=== PATIENT | female | born 1960 | race Caucasian/White ===

== ENCOUNTER 2016-11-19 15:13 | Emergency (ER) | payer MEDICARE, OTHER | END 2016-11-19 18:04 | disposition other institution (70) | LOC: ER 15:13 | DX: J44.0 Chronic obstructive pulmonary disease with (acute) lower respiratory infection (principal); J18.9 Pneumonia, unspecified organism; I10 Essential (primary) hypertension; G89.29 Other chronic pain; M54.9 Dorsalgia, unspecified; F32.9 Major depressive disorder, single episode, unspecified; F17.210 Nicotine dependence, cigarettes, uncomplicated; Z79.899 Other long term (current) drug therapy; Z88.0 Allergy status to penicillin; Z88.5 Allergy status to narcotic agent | CPT/HCPCS: 99284; 99284-25 ==

== ENCOUNTER 2016-11-19 15:13 | Inpatient (IN) | payer MEDICARE, OTHER ==
[~2016-11-19] VITALS: Ht 156.2 cm; Wt 66.0 kg
[2016-11-19 15:43] LABS: BASO % 0.2 % (0.1-1.2); EOS # 0.1 10_X3_uL (0.0-0.4); EOS % 0.5 % (0.7-5.8); GRAN # 7.9 10_X3_uL (1.6-6.1); GRAN % 64.6 % (34.0-71.1); HEMATOCRIT 38.6 % (34-45); HEMOGLOBIN 13.4 g/dL (11.2-15.7); LYMPH # 3.1 10_X3_uL (1.2-3.7); LYMPH % 25.2 % (19.3-51.7); MEAN CORPUSCULAR HEMOGLOBIN 29.1 pg (27.0-33.0); MEAN CORPUSCULAR HGB CONC 34.7 g/dL (32.0-36.0); MEAN CORPUSCULAR VOLUME 83.9 fL (79-95); MEAN PLATELET VOLUME 9.5 fl (7.5-11.5); MONO # 1.2 10_X3_uL (0.2-0.9); MONO % 9.5 % (4.7-12.5); PLATELET COUNT 431 x10_3/uL (182-369); RED CELL DISTRIBUTION WIDTH 14.8 % (11.7-14.4); WHITE BLOOD COUNT 12.3 x10_3/uL (4.0-10.0)
[2016-11-19 15:58] LABS: ALBUMIN 4.1 gm/dL (3.4-5.0); ALKALINE PHOSPHATASE 77 U/L (50-136); ALT/SGPT 15 U/L (3.5-33.9); AST/SGOT 26 U/L (7.04-26.96); BILIRUBIN,TOTAL 0.23 mg/dL (0.0-1.0); BLOOD UREA NITROGEN 15 mg/dL (7-18); CALCIUM 9.3 mg/dL (8.7-10.7); CARBON DIOXIDE 23 mmol/L (21-32); CREATININE 0.9 mg/dL (0.6-1.3); GLUCOSE,RANDOM 120 mg/dL (70-99); POTASSIUM 3.7 mmol/L (3.5-5.1); SODIUM 141 mmol/L (136-145); TOTAL PROTEIN 7.6 gm/dL (6.4-8.2)
[2016-11-20 07:08] LABS: BASO % 0.1 % (0.1-1.2); GRAN % 88.7 % (34.0-71.1); HEMATOCRIT 37.8 % (34-45); HEMOGLOBIN 12.4 g/dL (11.2-15.7); LYMPH # 1.1 10_X3_uL (1.2-3.7); LYMPH % 9.2 % (19.3-51.7); MEAN CORPUSCULAR HEMOGLOBIN 27.9 pg (27.0-33.0); MEAN CORPUSCULAR HGB CONC 32.8 g/dL (32.0-36.0); MEAN CORPUSCULAR VOLUME 85.1 fL (79-95); MEAN PLATELET VOLUME 10.3 fl (7.5-11.5); MONO # 0.3 10_X3_uL (0.2-0.9); PLATELET COUNT 403 x10_3/uL (182-369); RED BLOOD COUNT 4.44 x10_6/uL (3.9-5.2); RED CELL DISTRIBUTION WIDTH 14.8 % (11.7-14.4); WHITE BLOOD COUNT 12.4 x10_3/uL (4.0-10.0)
[2016-11-20 07:23] LABS: BLOOD UREA NITROGEN 17 mg/dL (7-18); CALCIUM 8.9 mg/dL (8.7-10.7); CARBON DIOXIDE 22 mmol/L (21-32); CREATININE 0.8 mg/dL (0.6-1.3); GLUCOSE,RANDOM 168 mg/dL (70-99); POTASSIUM 3.8 mmol/L (3.5-5.1); SODIUM 140 mmol/L (136-145)
[2016-11-21 06:36] LABS: HEMATOCRIT 34.6 % (34-45); HEMOGLOBIN 11.4 g/dL (11.2-15.7); MEAN CORPUSCULAR HEMOGLOBIN 28.4 pg (27.0-33.0); MEAN CORPUSCULAR HGB CONC 32.9 g/dL (32.0-36.0); MEAN CORPUSCULAR VOLUME 86.3 fL (79-95); MEAN PLATELET VOLUME 9.8 fl (7.5-11.5); RED BLOOD COUNT 4.01 x10_6/uL (3.9-5.2); RED CELL DISTRIBUTION WIDTH 15.1 % (11.7-14.4)
[2016-11-21 06:41] LABS: WHITE BLOOD COUNT 20.6 x10_3/uL (4.0-10.0)
[2016-11-21 06:53] LABS: BLOOD UREA NITROGEN 17 mg/dL (7-18); CALCIUM 8.8 mg/dL (8.7-10.7); CARBON DIOXIDE 23 mmol/L (21-32); CREATININE 0.8 mg/dL (0.6-1.3); GLUCOSE,RANDOM 132 mg/dL (70-99); POTASSIUM 4.6 mmol/L (3.5-5.1); SODIUM 139 mmol/L (136-145)
[2016-11-22 06:37] LABS: HEMATOCRIT 35.5 % (34-45); HEMOGLOBIN 11.7 g/dL (11.2-15.7); MEAN CORPUSCULAR HEMOGLOBIN 28.4 pg (27.0-33.0); MEAN CORPUSCULAR VOLUME 86.2 fL (79-95); MEAN PLATELET VOLUME 9.9 fl (7.5-11.5); RED BLOOD COUNT 4.12 x10_6/uL (3.9-5.2); RED CELL DISTRIBUTION WIDTH 15.2 % (11.7-14.4); WHITE BLOOD COUNT 19.5 x10_3/uL (4.0-10.0)
[2016-11-22 06:40] LABS: BLOOD UREA NITROGEN 21 mg/dL (7-18); CALCIUM 8.2 mg/dL (8.7-10.7); CARBON DIOXIDE 26 mmol/L (21-32); CREATININE 0.9 mg/dL (0.6-1.3); GLUCOSE,RANDOM 123 mg/dL (70-99); POTASSIUM 4.7 mmol/L (3.5-5.1); SODIUM 138 mmol/L (136-145)
[2016-11-23 06:36] LABS: BLOOD UREA NITROGEN 21 mg/dL (7-18); CARBON DIOXIDE 25 mmol/L (21-32); CREATININE 0.8 mg/dL (0.6-1.3); GLUCOSE,RANDOM 145 mg/dL (70-99); POTASSIUM 4.1 mmol/L (3.5-5.1); SODIUM 139 mmol/L (136-145)
[2016-11-23 06:41] LABS: HEMOGLOBIN 12.6 g/dL (11.2-15.7); MEAN CORPUSCULAR HEMOGLOBIN 28.5 pg (27.0-33.0); MEAN CORPUSCULAR HGB CONC 33.2 g/dL (32.0-36.0); MEAN PLATELET VOLUME 10.1 fl (7.5-11.5); RED BLOOD COUNT 4.42 x10_6/uL (3.9-5.2); RED CELL DISTRIBUTION WIDTH 15.2 % (11.7-14.4); WHITE BLOOD COUNT 16.9 x10_3/uL (4.0-10.0)
[2016-11-24 06:47] LABS: HEMOGLOBIN 12.3 g/dL (11.2-15.7); MEAN CORPUSCULAR HEMOGLOBIN 28.4 pg (27.0-33.0); MEAN CORPUSCULAR HGB CONC 33.2 g/dL (32.0-36.0); MEAN CORPUSCULAR VOLUME 85.5 fL (79-95); MEAN PLATELET VOLUME 10.1 fl (7.5-11.5); RED BLOOD COUNT 4.33 x10_6/uL (3.9-5.2); RED CELL DISTRIBUTION WIDTH 15.1 % (11.7-14.4); WHITE BLOOD COUNT 13.9 x10_3/uL (4.0-10.0)
[2016-11-24 07:15] LABS: ALBUMIN 3.9 gm/dL (3.4-5.0); ALKALINE PHOSPHATASE 57 U/L (50-136); ALT/SGPT 17 U/L (3.5-33.9); AST/SGOT 12 U/L (7.04-26.96); BLOOD UREA NITROGEN 23 mg/dL (7-18); CALCIUM 8.9 mg/dL (8.7-10.7); CARBON DIOXIDE 29 mmol/L (21-32); CREATININE 0.8 mg/dL (0.6-1.3); GLUCOSE,RANDOM 103 mg/dL (70-99); POTASSIUM 4.3 mmol/L (3.5-5.1); SODIUM 139 mmol/L (136-145); TOTAL PROTEIN 6.8 gm/dL (6.4-8.2)
[2016-11-24 07:23] LABS: BILIRUBIN,TOTAL < 0.15 mg/dL (0.0-1.0)
== END 2016-11-24 13:26 | disposition home or self-care (01) | DRG 190 ==
LOC: ER 15:13 → MS 18:04 → UNDODEPER 11-21 18:49 → MS 11-24 13:26
PROVIDERS: Emergency Medicine; Family Medicine; ADMIT Family Medicine
DX: J44.0 Chronic obstructive pulmonary disease with (acute) lower respiratory infection (principal); J18.9 Pneumonia, unspecified organism; J44.1 Chronic obstructive pulmonary disease with (acute) exacerbation; D72.829 Elevated white blood cell count, unspecified; R19.7 Diarrhea, unspecified; I10 Essential (primary) hypertension; F32.9 Major depressive disorder, single episode, unspecified; G89.29 Other chronic pain; M54.9 Dorsalgia, unspecified; Z85.41 Personal history of malignant neoplasm of cervix uteri; Z88.0 Allergy status to penicillin; Z88.5 Allergy status to narcotic agent; F17.210 Nicotine dependence, cigarettes, uncomplicated; Z79.899 Other long term (current) drug therapy
CPT/HCPCS: 36415; 71020; 71250; 80048; 80053; 82962; 83605; 85025; 86738; 87040; 87324; 87449; 94640; 94664; 96365; 96375; 99070; 99284; 99284-25; J2930